=== PATIENT | female | born 1995 | race Asian ===

== ENCOUNTER 2019-03-13 00:27 | Emergency (ER) | payer MEDICAID ==
[~2019-03-13] VITALS: Ht 165.1 cm; Wt 62.1 kg
[2019-03-13 00:41] VITALS: BP 129/81; Ht 165.1 cm; Wt 62.1 kg
== END 2019-03-13 01:53 | disposition home or self-care (01) ==
LOC: ED 00:27
DX: M54.5 Low back pain (principal); Z88.0 Allergy status to penicillin

== ENCOUNTER 2021-01-20 17:31 | Emergency (ER) | payer OTHER ==
[~2021-01-20] VITALS: Ht 167.6 cm; Wt 71.7 kg
[2021-01-20 17:46] VITALS: Ht 167.6 cm; Wt 71.7 kg
[2021-01-20 18:44] LABS: BASOPHIL % 0.6 % (0.2-1.3); PLATELET COUNT 223 x10^3mcL (179-408); RED CELL DISTRIBUTION WIDTH 12.5 % (12.3-17.7)
[2021-01-20 19:10] LABS: ALBUMIN 3.8 g/dL (3.4-5.0); ALKALINE PHOSPHATASE 78 U/L (46-116); ALT/SGPT 26 U/L (14-59); AST/SGOT 17 U/L (15-37); BILIRUBIN TOTAL 0.3 mg/dL (0.20-1.00); CALCIUM 8.6 mg/dL (8.5-10.1); CARBON DIOXIDE 27.5 mmol/L (21-32); CHLORIDE SERUM 104 mmol/L (98-107); CREATININE SERUM 0.9 mg/dL (0.6-1.0); GFR1 > 60 mL/min; GLUCOSE SERUM 108 mg/dL (74-106); LIPASE 153 IU/L (73-393); SODIUM SERUM 138 mmol/L (136-145); TOTAL PROTEIN, SERUM 7.1 g/dL (6.4-8.2)
[2021-01-20 19:44] VITALS: BP 143/914
== END 2021-01-20 19:44 | disposition home or self-care (01) ==
LOC: ED 17:31
PROVIDERS: Specialist
DX: R10.11 Right upper quadrant pain (principal); R07.89 Other chest pain; Z88.0 Allergy status to penicillin